=== PATIENT | female | born 1970 | race Caucasian/White ===

== ENCOUNTER → 2018-07-11 | Day surgery (SDC) | payer OTHER ==
--- NOTE | 2018-07-11 12:36 | RAD REPORT ---
EXAM DESCRIPTION: Ultrasound-guided vacuum assisted right breast core biopsy CLINICAL HISTORY: Breast mass R92.8 COMPARISON: Breast Bilat W Wo Cont dated 06/16/2018; Follow Up Breast Axilla Comp dated 05/18/2018; IMP 3D DIAG LIZA LT UNI W/CAD dated 05/18/2018; Follow Up Breast Axilla Ltd dated 10/27/2017; IMP 3D SCR MA M BILAT W/CAD dated 10/15/2017 FINDINGS: Informed consent was obtained and time-out was performed. The patient's inner right breast was prepped and draped in the usual sterile fashion. 1% lidocaine wa s used for local anesthetic purposes. Utilizing aseptic technique and ultrasound guidance, 18 gauge core biopsy device was used to obtain 2 specimens through the area of interest. The lesion was quite vague on sonography. All collected material was sent for cytology. Patient tolerated procedure well. IMPRESSION: Successful ultrasound guided 18 gauge core inner right breast lesion biopsy.
== END | disposition home or self-care (01) ==
LOC: FNA 10:34
PROVIDERS: ATTEND Specialist
PROC: 0HBT3ZX Excision of Right Breast, Percutaneous Approach, Diagnostic (ICD-10-PCS; principal; 2018-07-11)
DX: N63.0 Unspecified lump in unspecified breast (principal)
CPT/HCPCS: 19083; 88305

== ENCOUNTER 2020-11-30 16:15 | Emergency (ER) | payer OTHER ==
[2020-11-30 16:45] LABS: Urine Blood Negative (Negative); Urine Glucose Negative (Negative); Urine Protein Negative (Negative); Urine Specific Gravity >=1.030 (1.005-1.030); Urine pH 5.5 (5.0-7.0)
[2020-11-30] MEDS ORDERED: NA CHLORIDE 0.9% 1,000 ML ONE (16:53)
[2020-11-30] MEDS ORDERED: KETOROLAC 30 MG/ML INJ ONE (16:53)
[2020-11-30] MEDS ORDERED: METOCLOPRAMIDE 10 MG/2mL INJ ONE (16:53)
[2020-11-30 16:58] LABS: Absolute Lymphocytes (CBC) 2.3 K/uL (0.7-4.9); Basophils % 1.3 % (0-1.3); Hematocrit 45.4 % (36.0-45.0); Lymphocytes % 26.4 % (15.3-44.8); MPV 8.4 fL (7.6-11.3); RBC Red Blood Cell Count 4.38 M/uL (3.86-4.86)
[2020-11-30 17:14] LABS: Urine Specific Gravity/Preg >1.030 (1.005-1.030)
[2020-11-30 17:27] LABS: Albumin 4.4 g/dL (3.4-5.0); Bilirubin Direct 0.1 mg/dL (0-0.2); Bilirubin Total 0.6 mg/dL (0.2-1.0); Potassium 3.7 mmol/L (3.5-5.1); Protein, Total 8.1 g/dL (6.4-8.2)
--- NOTE | 2020-11-30 17:27 | RAD REPORT ---
EXAM DESCRIPTION: CT - Head Brain Wo Cont - 11/30/2020 5:09 pm CLINICAL HISTORY: Headache COMPARISON: None. TECHNIQUE: Computed axial tomography of the head was obtained. IV contrast was not requested. All CT scans are performed using dose optimization technique as appropriate and may include automated exposure control or mA/KV adjustment according to patient size. FINDINGS: An intracranial bleed is not seen . The ventricles are normal in caliber. No extra-axial fluid collection is noted. Fluid within the sinuses/ mastoids is not seen. IMPRESSION: No acute intracranial abnormality is seen. If patient's symptoms persist MRI of the bra in would be recommended.
--- NOTE | 2020-11-30 18:57 | ER ---
Nurse's Notes [facility] Name: Venessa Lucas Age: 50 yrs Sex: Female : 1970 Arrival Date: 11/30/2020 Time: 16:17 Bed 16 [facility] MD: Diagnosis: Headache Presentation: 11/30 16:22 Chief complaint: Migraine upon walking today, pain subsided after nap and Fioricet, hb then came back suddenly and worse about 30 ins ago. Coronavirus screen: At this time, the client does not indicate any symptoms associated with coronavirus-19. Ebola Screen: No symptoms or risks identified at this time. Initial Sepsis Screen: Does the patient meet any 2 criteria? No. Patient's initial sepsis screen is negative. Does the patient have a suspected source of infection? No. Patient's initial sepsis screen is negative. Risk Assessment: Do you want to hurt yourself or someone else? Patient reports no desire to harm self or others. Onset of symptoms was November 30, 2020. 16:22 Method Of Arrival: Ambulatory hb 16:22 Acuity: DARRELL 3 hb Triage Assessment: 16:55 Headache History: The patient has had previous headaches and this one is different than vg1 previous episodes, and this one is more severe than previous episodes. 16:56 Pain: Also complains of nausea, photophobia. 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 - Social history:: Smoking status: Patient denies any tobacco usage or history of. Screenin:54 Abuse screen: Denies threats or abuse. Nutritional screening: No deficits noted. vg1 Tuberculosis screening: No symptoms or risk factors identified. Fall Risk No fall in past 12 months (0 pts). No secondary diagnosis (0 pts). IV access (20 points). Ambulatory Aid- None/Bed Rest/Nurse Assist (0 pts). Gait- Normal/Bed Rest/Wheelchair (0 pts) Mental Status- Oriented to own ability (0 pts). Total Mueller Fall Scale indicates No Risk (0-24 pts). Assessment: 16:53 General: Appears in no apparent distress. uncomfortable, Behavior is calm, cooperative. vg1 Pain: Complains of pain in head Pain currently is 5 out of 10 on a pain scale. at worst was 10 out of 10 on a pain scale. Quality of pain is described as pressure, Pain began 1 hour ago. Noted to be grimacing. Neuro: Level of Consciousness is awake, alert, obeys commands, Oriented to person, place, time, situation, Reports headache photophobia. Cardiovascular: Patient's skin is warm and dry. Respiratory: Airway is patent Respiratory effort is even, unlabored. GI: Abdomen is flat, non-distended, Reports nausea, vomiting. : No signs and/or symptoms were reported regarding the genitourinary system. EENT: No signs and/or symptoms were reported regarding the EENT system. Derm: Skin is intact, is healthy with good turgor. Musculoskeletal: Circulation, motion, and sensation intact. 17:48 Reassessment: Patient appears in no apparent distress at this time. Patient and/or vg1 family updated on plan of care and expected duration. Pain level reassessed. Patient is alert, oriented x 3, equal unlabored respirations, skin warm/dry/pink. Rated headache pain 1/10 from 5/10 Patient states feeling better. 18:52 Reassessment: Patient appears in no apparent distress at this time. No changes from vg1 previously documented assessment. Vital Signs: 16:22 BP 145 / 101; Pulse 92; Resp 18; Temp 97.3; Pulse Ox 100% on R/A; Pain 8/10; hb 16:55 BP 113 / 69; Pulse 73; Resp 14; Pulse Ox 100% ; vg1 17:49 BP 104 / 69; Pulse 65; Resp 14; Pulse Ox 100% on R/A; vg1 18:53 BP 118 / 99; Pulse 68; Resp 14; Pulse Ox 100% on R/A; vg1 [place] Coma Score: 18:55 Eye Response: spontaneous(4). Verbal Response: oriented(5). Motor Response: obeys ma2 commands(6). Total: 15. ED Course: 16:17 Patient arrived in ED. mr 16:21 Ivania Byrne RN is Primary Nurse. vg1 16:21 Suraj Willett MD is Attending Physician. ma2 16:23 Triage completed. hb 16:24 Arm band placed on. hb 16:45 Missed attempt(s): 20 gauge in left antecubital area. Bleeding controlled, band aid jp3 applied, catheter tip intact. 16:50 Initial lab(s) drawn, by me, sent to lab. Inserted saline lock: 22 gauge in right jp3 antecubital area, using aseptic technique. Blood collected. Patient maintains SpO2 saturation greater than 95% on room air. 16:54 Patient has correct armband on for positive identification. Bed in low position. Call vg1 light in reach. Side rails up X 1. 17:09 CT Head Brain wo Cont In Process Unspecified. EDDC 18:56 Anand Henderson MD is Referral Physician. ma2 19:05 No provider procedures requiring assistance completed. IV discontinued, intact, vg1 bleeding controlled, No redness/swelling at site. Pressure dressing applied. Administered Medications: 16:46 Drug: TORadol (ketorolac) 30 mg Route: IVP; Site: right antecubital; vg1 17:49 Follow up: Response: No adverse reaction; Pain is decreased vg1 16:48 Drug: NS 0.9% 1000 ml Route: IV; Rate: 1 bolus; Site: right antecubital; vg1 19:06 Follow up: IV Status: Completed infusion; IV Intake: 1000ml vg1 16:48 Drug: Reglan (metoCLOPramide) 20 mg {Note: [id number] mg placed in bolus.} Route: IVP; vg1 Site: right antecubital; 19:06 Follow up: Response: No adverse reaction; Nausea is decreased vg1 Intake: 19:06 IV: 1000ml; Total: 1000ml. vg1 Outcome: 18:56 Discharge ordered by . ma2 19:05 Discharged to home ambulatory. vg1 19:05 Condition: stable 19:05 Discharge instructions given to patient, Instructed on discharge instructions, follow up and referral plans. medication usage, Demonstrated understanding of instructions, follow-up care, medications, Prescriptions given X 2. 19:05 Patient left the ED. vg1 Signatures: Dispatcher [employer] [facility] Ewa Rodrigez Heather, RN RN Suraj Willett MD MD ma2 Anish Murray 3 Ivania Byrne, NIMO RN vg1
--- NOTE | 2020-11-30 18:58 | EDPHYS ---
Physician Documentation [facility] Name: Venessa Lucas Age: 50 yrs Sex: Female : 1970 Arrival Date: 11/30/2020 Time: 16:17 Bed 16 Private MD: ED Physician Suraj Willett HPI: 11/30 18:16 This 50 yrs old Female presents to ER via Ambulatory with complaints of ma2 Headache. 18:16 The patient complains of pain to the forehead. The patient describes the headache as a ma2 pressure. Onset: The symptoms/episode began/occurred gradually, 3 hour(s) ago. Severity of symptoms: At its worst the pain was moderate, in the emergency department the pain is unchanged. Headache History: The patient has had previous headaches and this one is similar to previous episodes. The patient has experienced similar episodes in the past. gradual headache. 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 - Social history:: Smoking status: Patient denies any tobacco usage or history of. ROS: 18:16 Constitutional: Negative for fever, chills, and weight loss. ma2 18:16 All other systems are negative. Exam: 18:16 Constitutional: This is a well developed, well nourished patient who is awake, alert, ma2 and in no acute distress. Head/Face: Normocephalic, atraumatic. Eyes: Pupils equal round and reactive to light, extra-ocular motions intact. Lids and lashes normal. Conjunctiva and sclera are non-icteric and not injected. Cornea within normal limits. Periorbital areas with no swelling, redness, or edema. ENT: Nares patent. No nasal discharge, no septal abnormalities noted. Tympanic membranes are normal and external auditory canals are clear. Oropharynx with no redness, swelling, or masses, exudates, or evidence of obstruction, uvula midline. Mucous membranes moist. Neck: Trachea midline, no thyromegaly or masses palpated, and no cervical lymphadenopathy. Supple, full range of motion without nuchal rigidity, or vertebral point tenderness. No Meningismus. Chest/axilla: Normal chest wall appearance and motion. Nontender with no deformity. No lesions are appreciated. Cardiovascular: Regular rate and rhythm with a normal S1 and S2. No gallops, murmurs, or rubs. Normal PMI, no JVD. No pulse deficits. Respiratory: Lungs have equal breath sounds bilaterally, clear to auscultation and percussion. No rales, rhonchi or wheezes noted. No increased work of breathing, no retractions or nasal flaring. Abdomen/GI: Soft, non-tender, with normal bowel sounds. No distension or tympany. No guarding or rebound. No evidence of tenderness throughout. Back: No spinal tenderness. No costovertebral tenderness. Full range of motion. Skin: Warm, dry with normal turgor. Normal color with no rashes, no lesions, and no evidence of cellulitis. MS/ Extremity: Pulses equal, no cyanosis. Neurovascular intact. Full, normal range of motion. Neuro: Awake and alert, GCS 15, oriented to person, place, time, and situation. Cranial nerves II-XII grossly intact. Motor strength 5/5 in all extremities. Sensory grossly intact. Cerebellar exam normal. Normal gait. Vital Signs: 16:22 BP 145 / 101; Pulse 92; Resp 18; Temp 97.3; Pulse Ox 100% on R/A; Pain 8/10; hb 16:55 BP 113 / 69; Pulse 73; Resp 14; Pulse Ox 100% ; vg1 17:49 BP 104 / 69; Pulse 65; Resp 14; Pulse Ox 100% on R/A; vg1 18:53 BP 118 / 99; Pulse 68; Resp 14; Pulse Ox 100% on R/A; vg1 [place] Coma Score: 18:55 Eye Response: spontaneous(4). Verbal Response: oriented(5). Motor Response: obeys ma2 commands(6). Total: 15. MDM: 16:[address] [facility] 18:16 Differential diagnosis: migraine, trigeminal neuralgia, uremia, vasomotor headache. wy2 18:55 Data reviewed: vital signs, nurses notes. Counseling: I had a detailed discussion with ma2 the patient and/or guardian regarding: the historical points, exam findings, and any diagnostic results supporting the discharge/admit diagnosis, the presence of at least one elevated blood pressure reading (>120/80) during this emergency department visit, the need for outpatient follow up. Response to treatment: the patient's symptoms have markedly improved after treatment. 11/30 16:24 Order name: Basic Metabolic Panel [facility] 11/30 16:24 Order name: CBC with Diff; Complete Time: 18:19 wy2 11/30 16:24 Order name: Hepatic Function [facility] 11/30 16:24 Order name: Lipase; Complete Time: 18:19 wy2 11/30 16:25 Order name: Basic Metabolic Panel; Complete Time: 18:19 EDMS 11/30 16:25 Order name: Liver (Hepatic) Function; Complete Time: 18:19 EDMS 11/30 16:24 Order name: IV Saline Lock; Complete Time: 16:51 wy2 11/30 16:24 Order name: CT Head Brain wo Cont; Complete Time: 18:19 wy2 11/30 16:45 Order name: Urine Dipstick-Ancillary [facility] 11/30 16:46 Order name: Urine --Ancillary (enter results) 11/30 16:47 Order name: Urine --Ancillary; Complete Time: 18:19 EDMS 11/30 16:24 Order name: Labs collected and sent; Complete Time: 16:51 ma2 11/30 16:24 Order name: Urine Dipstick-Ancillary (obtain specimen); Complete Time: 16:44 ma2 Administered Medications: 16:46 Drug: TORadol (ketorolac) 30 mg Route: IVP; Site: right antecubital; vg1 17:49 Follow up: Response: No adverse reaction; Pain is decreased vg1 16:48 Drug: NS 0.9% 1000 ml Route: IV; Rate: 1 bolus; Site: right antecubital; vg1 19:06 Follow up: IV Status: Completed infusion; IV Intake: 1000ml vg1 16:48 Drug: Reglan (metoCLOPramide) 20 mg {Note: [id number] mg placed in bolus.} Route: IVP; vg1 Site: right antecubital; 19:06 Follow up: Response: No adverse reaction; Nausea is decreased vg1 Disposition: 11/30/20 18:56 Discharged to Home. Impression: Headache. - Condition is Stable. - Discharge Instructions: General Headache Without Cause. - Prescriptions for Reglan 10 mg Oral Tablet - take 1 tablet by ORAL route every 6 hours take 30 minutes before meals and at bedtime; 20 tablet. Diclofenac Sodium 75 mg Oral Tablet Sustained Release - take 1 tablet by ORAL route 2 times per day; 30 tablet. - Medication Reconciliation Form, Thank You Letter, Antibiotic Education, Prescription Opioid Use form. - Follow up: Anand Henderson MD; When: Tomorrow; Reason: If symptoms return, Continuance of care. Signatures: Dispatcher [employer] EDMaría Elena Khan RN RN Suraj Willett MD MD ma2 Ivania Byrne RN RN vg1 Corrections: (The following items were deleted from the chart) 19:05 18:56 11/30/2020 18:56 Discharged to Home. Impression: Headache. Condition is Stable. vg1 Prescriptions for Reglan 10 mg Oral Tablet - take 1 tablet by ORAL route every 6 hours take 30 minutes before meals and at bedtime; 20 tablet, Diclofenac Sodium 75 mg Oral Tablet Sustained Release - take 1 tablet by ORAL route 2 times per day; 30 tablet. and Forms are Medication Reconciliation Form, Thank You Letter, Antibiotic Education, Prescription Opioid Use. Follow up: Anand Henderson; When: Tomorrow; Reason: If symptoms return, Continuance of care. ma2
[2020-11-30 19:17] VITALS: TEMP 97.3; O2SAT 100
[2020-11-30 19:33] VITALS: BP 118/99
== END 2020-11-30 19:05 | disposition home or self-care (01) ==
LOC: ER 16:15
DX: R51.9 Headache, unspecified (principal); Z88.3 Allergy status to other anti-infective agents
CPT/HCPCS: 85025; 80048; 36415; 81025; 80076; 81003; 83690; 70450; J2765; J7030; 96361; 96374; 96375; 99284